=== PATIENT | male | born 1965 | race Caucasian/White ===

== ENCOUNTER 2020-08-11 10:49 | Emergency (ER) | payer OTHER, SELFPAY ==
[2020-08-11 10:49] VITALS: BP 147/100; PULSE 88; RESP 16; TEMP 36.8; O2SAT 97; BMI 31.1
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
[2020-08-11 11:27] VITALS: BP 147/100; PULSE 88; RESP 16; TEMP 36.8; O2SAT 97
== END 2020-08-11 11:27 | disposition home or self-care (01) ==
PROVIDERS: Emergency Provider Emergency Medicine
DX: S16.1XXA Strain of muscle, fascia and tendon at neck level, initial encounter (principal); S00.81XA Abrasion of other part of head, initial encounter; V69.49XA Driver of heavy transport vehicle injured in collision with other motor vehicles in traffic accident, initial encounter; Y92.488 Other paved roadways as the place of occurrence of the external cause
CPT/HCPCS: 99281